=== PATIENT | male | born 1945 | race American Indian/Alaskan Native ===

== ENCOUNTER 2016-12-01 23:36 | Emergency (ER) | payer MEDICARE ==
--- NOTE | 2016-12-01 23:52 | Emergency Department Report ---
ED Male HPI - General Chief complaint: Abdominal Pain Stated complaint: DYSURIA Time Seen by Provider: 12/01/16 23:42 Source: patient, family Limitations: No Limitations - History of Present Illness Initial comments: This is a 71-year-old male, previously unknown to me. Reports a past medical history of urinary retention. His urologist is Dr. Berman, through [facility] ; [phone]. Patient reports that he had an indwelling Garay catheter discharged at 2:30 PM yesterday. A few hours later he developed urinary retention and mild suprapubic pain and fullness. He has no headache, neck pain, chest pain, abdominal pain, shortness of breath. There is no testicular pain. This pain typically improves with insertion of a Garay catheter. MD Complaint: other (urinary retention) -: Sudden, hour(s) Location: abdomen (suprapubic) Severity: mild Quality: aching Consistency: constant Improves with: none Worsens with: none indwelling catheter urinary retention, blood in urine. denies: discharge, swelling - Related Data Home Medications Medication Instructions Recorded Confirmed Last Taken AtorvaSTATin [Lipitor] 80 mg PO DAILY 12/01/16 12/01/16 Unknown Carvedilol [Coreg] 25 mg PO BID 12/01/16 12/01/16 Unknown Finasteride [Proscar] 5 mg PO QDAY 12/01/16 12/01/16 Unknown Losartan [Cozaar] 100 mg PO QDAY 12/01/16 12/01/16 Unknown Nitrofurantoin [place]/M-Cryst 100 mg PO Q12HR 12/01/16 12/01/16 Unknown [Macrobid CAP] amLODIPine [Norvasc] 10 mg PO DAILY 12/01/16 12/01/16 Unknown traMADol [Ultram] 50 mg PO Q6HR PRN 12/01/16 12/01/16 Unknown Previous Rx's Medication Instructions Recorded Last Taken Type Magnesium Oxide 400 mg PO BID #14 tablet 12/02/16 Unknown Rx Allergies Allergy/AdvReac Type Severity Reaction Status Date / Time No Known Allergies Allergy Unverified 12/02/16 02:25 ED Review of Systems ROS: Stated complaint: DYSURIA Other details as noted in HPI Constitutional: denies: fever Eyes: denies: vision change ENT: denies: epistaxis Respiratory: denies: cough Cardiovascular: denies: chest pain Gastrointestinal: denies: abdominal pain Genitourinary: hematuria Musculoskeletal: denies: back pain Skin: denies: lesions Neurological: denies: headache, weakness ED Past Medical Hx - Medications Home Medications: Home Medications Medication Instructions Recorded Confirmed Last Taken Type AtorvaSTATin [Lipitor] 80 mg PO DAILY 12/01/16 12/01/16 Unknown History Carvedilol [Coreg] 25 mg PO BID 12/01/16 12/01/16 Unknown History Finasteride [Proscar] 5 mg PO QDAY 12/01/16 12/01/16 Unknown History Losartan [Cozaar] 100 mg PO QDAY 12/01/16 12/01/16 Unknown History Nitrofurantoin [place]/M-Cryst 100 mg PO Q12HR 12/01/16 12/01/16 Unknown History [Macrobid CAP] amLODIPine [Norvasc] 10 mg PO DAILY 12/01/16 12/01/16 Unknown History traMADol [Ultram] 50 mg PO Q6HR PRN 12/01/16 12/01/16 Unknown History Magnesium Oxide 400 mg PO BID #14 tablet 12/02/16 Unknown Rx ED Physical Exam - General General appearance: alert, in no apparent distress, obese - Head Head exam: Present: atraumatic, normocephalic - Eye Eye exam: Present: normal appearance, EOMI. Absent: nystagmus - ENT ENT exam: Present: normal exam, normal orophraynx, mucous membranes moist, normal external ear exam - Neck Neck exam: Present: normal inspection, full ROM. Absent: tenderness, meningismus - Respiratory Respiratory exam: Present: normal lung sounds bilaterally. Absent: respiratory distress, wheezes, rales, rhonchi, stridor, chest wall tenderness - Cardiovascular Cardiovascular Exam: Present: regular rate, normal rhythm, normal heart sounds. Absent: bradycardia, tachycardia, irregular rhythm, systolic murmur, diastolic murmur, rubs, gallop - GI/Abdominal GI/Abdominal exam: Present: soft, normal bowel sounds. Absent: distended, tenderness, guarding, rebound, rigid, pulsatile mass - Rectal Rectal exam: Present: deferred - exam: Present: normal inspection, other (no testicular tenderness.). Absent : testicular tenderness External exam: Present: normal external exam, other (uncircumcised. Bloody discharge through the urethral meatus.) - Extremities Exam Extremities exam: Present: normal inspection, full ROM, normal capillary refill. Absent: tenderness, pedal edema, joint swelling, calf tenderness - Back Exam Back exam: Present: normal inspection, full ROM. Absent: tenderness, CVA tenderness (R), CVA tenderness (L), muscle spasm, paraspinal tenderness, vertebral tenderness - Neurological Exam Neurological exam: Present: alert, oriented X3, normal gait, other (Extraocular movements intact. Tongue midline. No facial droop. Facial sensation intact to light touch in the V1, V2, V3 distribution bilaterally. 5 and 5 strength in 4 extremities.. Sensation is intact to light touch in 4 extremities.). Absent : motor sensory deficit - Psychiatric Psychiatric exam: Present: normal affect, normal mood - Skin Skin exam: Present: warm, dry, intact, normal color. Absent: rash ED Course Vital Signs 12/01/16 12/02/16 23:55 00:06 Temperature 98.2 F 98.2 F Pulse Rate 88 84 Respiratory 16 16 Rate Blood Pressure 147/80 Blood Pressure 146/82 [Right] O2 Sat by Pulse 98 98 Oximetry - Reevaluation(s) Reevaluation #1: 12/02/16 01:10 Differential diagnosis: Urinary retention, urinary tract infection, hemorrhagic cystitis, bladder spasm Assessment and plan: 71-year-old male with gross hematuria after placement of the Garay catheter. He will be irrigated with sterile saline. Laboratory studies pending. Urinalysis and urine culture pending. He is otherwise afebrile with reassuring vital signs, and no distress. Reevaluation #2: 12/02/16 02:44 the patient was irrigated thoroughly with a 60 mL kendy syringe, and the clarity of his urine improved. He is now putting out urine and a leg bag, and is resting comfortably. His magnesium was repleted. He will be discharged with magnesium supplementation, instructions to follow up with urology. Urinalysis appreciated, cultures are pending, I don't believe patient requires antibiotic therapy at this time. ED Medical Decision Making - Lab Data Result diagrams: 12/02/16 00:31 Vital Signs 12/01/16 12/02/16 23:55 00:06 Temperature 98.2 F 98.2 F Pulse Rate 88 84 Respiratory 16 16 Rate Blood Pressure 147/80 Blood Pressure 146/82 [Right] O2 Sat by Pulse 98 98 Oximetry Critical care attestation.: If time is entered above; I have spent that time in minutes in the direct care of this critically ill patient, excluding procedure time. ED Disposition Clinical Impression: Urinary retention, Hypomagnesemia Disposition: DISCHARGED TO HOME OR SELFCARE Is pt being admited?: No Does the pt Need Aspirin: No Condition: Stable Instructions: Urinary Retention in Men (ED), Magnesium Oxide (By mouth), Hypomagnesemia (ED) Additional Instructions: Keep the Garay catheter in place. Follow-up with your urology specialist within the next week. Cultures were sent today, results will be available the next 3-5 days. Have your primary care doctor or urology specialist contact the medical records department to obtain culture results. Laboratory studies also indicated decreased magnesium level. Take the magnesium supplementation as directed. I have given you a one-week prescription for magnesium supplementation. Return to the ER right away with fevers, chills, chest pain, shortness of breath, nausea, vomiting, inability to tolerate liquid feeds. For your convenience, Dr. Zhou is a local urology specialist. Prescriptions: Magnesium Oxide 400 mg PO BID #14 tablet Referrals: PRIMARY MD JOSE DE JESUS [Primary Care Provider] - 3-5 Days DOLORES ZHOU MD [Staff Physician] - 3-5 Days
[2016-12-02] MEDS ORDERED: NACL 0.9% 1,000 ML IR ONE (00:49)
[2016-12-02 01:11] LABS: BUN/Creatinine Ratio 17.27; Blood Urea Nitrogen 19 mg/dL (9-20); Calcium 8.3 mg/dL (8.4-10.2); Carbon Dioxide 19 mmol/L (22-30); Chloride 95.3 mmol/L (98-107); Glucose 93 mg/dL (75-100); Potassium 3.7 mmol/L (3.6-5.0); Sodium 132 mmol/L (137-145)
[2016-12-02 01:17] LABS: Anion Gap 21 mmol/L
[2016-12-02 01:18] LABS: Magnesium 0.8 mg/dL (1.7-2.3)
[2016-12-02] MEDS ORDERED: MAGNESIUM SULFATE 2GM/50ML 50 ML IV ONE (01:20)
[2016-12-02] MEDS ORDERED: MAG-OX PO STA (01:20)
[2016-12-02 02:42] LABS: Bacteria,Urine 1+ /HPF (Negative); Bilirubin,Urine NEG (Negative); Blood,Urine LG (Negative); Ketones,Urine NEG (Negative); Leukocyte Esterase,Urine TR (Negative); Nitrite,Urine NEG (Negative); Urobilinogen,Urine < 2.0 mg/dL (<2.0)
[2016-12-02 05:13] VITALS: BP 138/82
[2016-12-02] MEDS ORDERED: NACL 0.9% IR ONE (05:40)
== END 2016-12-02 05:13 | disposition home or self-care (01) ==
LOC: ED 23:36
DX: R33.9 Retention of urine, unspecified (principal); E83.42 Hypomagnesemia
CPT/HCPCS: 36415; 51702; 80048; 81001; 83735; 87086; 96365; 99284; J3475; 87076; 87186

== ENCOUNTER 2017-01-28 10:30 | Emergency (ER) | payer MEDICARE ==
[2017-01-28 10:55] VITALS: BP 142/83
== END 2017-01-28 10:52 | disposition left against medical advice (07) ==
LOC: ED 10:30
DX: R33.9 Retention of urine, unspecified (principal); Z53.21 Procedure and treatment not carried out due to patient leaving prior to being seen by health care provider